=== PATIENT | male | born 1980 | race Caucasian/White ===

== ENCOUNTER 2020-01-10 07:47 | Emergency (ER) | payer OTHER ==
[~2020-01-10] VITALS: Ht 170.2 cm; Wt 110.0 kg
[2020-01-10 07:58] VITALS: BP 159/101
[2020-01-10] MEDS ORDERED: KETOROLAC 30 MG/1 ML ONE (08:21)
--- NOTE | 2020-01-10 08:27 | NUR ---
THIS IS A 39 YEAR OLD MALE VISITING FROM [facility]. PT HAS HX OF BACK PAIN AND HX OF KIDYNEY STONES. MEDICATED PER ORDERS
[2020-01-10] MEDS ORDERED: KETOROLAC 30 MG/1 ML IM ONE (08:30)
[2020-01-10 08:52] LABS: BASOPHILS # (AUTO) 0.04 x10^3/uL (0-0.1); BASOPHILS % (AUTO) 0 % (0-1); EOSINOPHILS # (AUTO) 0.16 x10^3/uL (0-0.4); EOSINOPHILS % (AUTO) 1 % (1-7); LYMPHOCYTES # (AUTO) 2.26 x10^3/uL (1-3.4); LYMPHOCYTES % (AUTO) 18 % (22-44); MD NO; MEAN CORPUSCULAR HEMOGLOBIN 30.1 pg (27.5-34.5); MEAN CORPUSCULAR HGB CONC 32.4 g/dL (33.2-36.2); MEAN CORPUSCULAR VOLUME 92.9 fL (81-97); MEAN PLATELET VOLUME 7.5 fL (7.4-10.4); MONOCYTES # (AUTO) 0.45 x10^3/uL (0.2-0.8); MONOCYTES % (AUTO) 4 % (2-9); NEUTROPHILS # (AUTO) 9.59 x10^3/uL (1.8-6.8); NEUTROPHILS % (AUTO) 77 % (42-75); PLATELET COUNT 259 x10^3/uL (130-400); RED BLOOD COUNT 4.76 x10^6/uL (4.38-5.82); RED CELL DISTRIBUTION WIDTH 13.3 % (9.4-14.8)
[2020-01-10 09:05] LABS: ALBUMIN 3.6 g/dL (3.4-5.0); ANION GAP 7 mmol/L (5-15); CALCIUM 8.3 mg/dL (8.5-10.1); CHLORIDE 108 mmol/L (98-107); CREATININE 0.98 mg/dL (0.7-1.3)
[2020-01-10 09:07] LABS: MICROSCOPIC INDICATED
--- NOTE | 2020-01-10 09:19 | NUR ---
PT REQUESTING ADDITIONAL PAIN MEDICATION STATES, PAIN IS STILL 05/07
[2020-01-10 09:29] LABS: CULTURE INDICATED? NO
[2020-01-10] MEDS ORDERED: HYDROcodone/APAP 5/325 TABLET ONE (09:40)
[2020-01-10] MEDS ORDERED: HYDROcodone/APAP 5/325 TABLET PO ONE (10:00)
--- NOTE | 2020-01-10 10:18 | NUR ---
Patient/Caregiver given discharge instructions and they have confirmed that they understand the instructions. Patient ambulatory with steady gait.
== END 2020-01-10 10:20 | disposition home or self-care (01) ==
LOC: ED 09:13
DX: N13.2 Hydronephrosis with renal and ureteral calculous obstruction (principal)
CPT/HCPCS: 36415; 74176; 80048; 81001; 82040; 85025; 96372; 99284; J1885